=== PATIENT | male | born 1950 | race Caucasian/White ===

== ENCOUNTER 2021-12-04 05:23 | Day surgery (SDC) | payer MEDICARE, BC ==
[2021-11-29 15:00] LABS: BASOPHILS # (AUTO) 0.1 X10'3 (0-0.2); BASOPHILS % (AUTO) 0.9 % (0-1); EOSINOPHILS # (AUTO) 0.1 X10'3 (0-0.9); LYMPHOCYTES # (AUTO) 1.1 X10'3 (1.1-4.8); LYMPHOCYTES % (AUTO) 17.2 % (21-51); MEAN CORPUSCULAR HEMOGLOBIN 29.9 PG (27.0-31.0); MEAN CORPUSCULAR HGB CONC 33.2 g/dL (33.0-36.5); MEAN CORPUSCULAR VOLUME 89.9 FL (78-98); MEAN PLATELET VOLUME 7.2 FL (7.4-10.4); MONOCYTES # (AUTO) 0.5 X10'3 (0-0.9); MONOCYTES % (AUTO) 8.8 % (2-12); NEUTROPHILS # (AUTO) 4.4 X10'3 (1.8-7.7); NEUTROPHILS % (AUTO) 72.1 % (42-75); PRE OP HEMATOCRIT 44.5 % (42.0-52.0); PRE OP HEMOGLOBIN 14.8 g/dL (14.0-17.9); PRE OP PLATELET COUNT 256 X10'3 (140-440); RED BLOOD COUNT 4.95 X10'6 (4.70-6.10); RED CELL DISTRIBUTION WIDTH 13.5 % (11.5-14.5)
[2021-11-29 15:15] LABS: ALBUMIN 3.6 G/DL (3.4-5.0); ALBUMIN/GLOBULIN RATIO 0.9 (1.1-1.5); ALKALINE PHOSPHATASE 73 IU/L (46-116); BLOOD UREA NITROGEN 19 MG/DL (7-18); BUN/CREATININE RATIO 16.5 (5.4-32.0); CALCIUM 9.2 MG/DL (8.5-10.1); CHLORIDE 105 MMOL/L (99-107); CREATININE 1.15 MG/DL (0.60-1.10); PRE OP ALT 67 U/L (30-65); PRE OP ANION GAP 11 (8-16); PRE OP AST 23 U/L (10-37); PRE OP BILIRUB, TOTAL 0.5 MG/DL (0.0-1.0); PRE OP SODIUM 142 MMOL/L (135-145); TOTAL CARBON DIOXIDE 25.6 MMOL/L (24-32); TOTAL PROTEIN 7.6 G/DL (6.4-8.2); eGFR 63 ML/MIN
[2021-11-29 15:20] LABS: PRE OP POTASSIUM 4.1 MMOL/L (3.4-5.1)
[2021-11-29 15:28] LABS: PRE OP GLUCOSE 273 MG/DL (70-104)
[~2021-12-04] VITALS: Ht 177.8 cm; Wt 77.9 kg
[~2021-12-04 05:23] MED LIST: EMPA10TA PO; EZET10TA6 PO; HYDR-3972 PO; NAPR-1058 PO; NYST1000 PO; ROSU10TA2 PO; SEMA1PEN3 SQ; [UNRECOGNIZED DRUG - OTHER] PO; ringers solution, lacted 1,000 ML IV SCH
[2021-12-04] MEDS ORDERED: famotidine 20mg tablet PO ONE (05:30)
[2021-12-04] MEDS ORDERED: ceFAZolin inj. 2,000 MG in dextrose 5%-water 100 ML IV ONE (05:30)
[2021-12-04 06:00] VITALS: BP 128/71
[2021-12-04] MEDS ORDERED: BUPIVAcaine/PF 2.5 mg/ml (0.25%) 30ml vial ONE (06:46)
[2021-12-04] MEDS ORDERED: BUPIVAcaine/PF 2.5mg/ml (0.25%) 10ml vial ONE (06:59)
[2021-12-04] MEDS ORDERED: morphine 2 MG/ML inj. syringe IV PRN (07:15)
[2021-12-04] MEDS ORDERED: hydrALAZINE 20mg/ml inj. IV PRN (07:15)
[2021-12-04] MEDS ORDERED: labetalol 20mg/4ml (5mg/ml) syringe IV PRN (07:15)
[2021-12-04] MEDS ORDERED: morphine 4 MG/ML inj SYRINge IV PRN (07:15)
[2021-12-04] MEDS ORDERED: ondansetron/PF 4mg/2ml inj IV PRN (07:15)
[2021-12-04] MEDS ORDERED: ringers solution, lacted 1,000 ML IV SCH (07:15)
[2021-12-04] MEDS ORDERED: fentaNYL/PF 50MCG/1 ML 2ML syringe IV PRN ×2 (07:15)
[2021-12-04] MEDS ORDERED: LIDOcaine 0.5% (5mg/ml) 50ml vial ONE (07:16)
[2021-12-04] MEDS ORDERED: MIDAZolam 1 MG/ML 5ML VIAL ONE (07:21)
[2021-12-04] MEDS ORDERED: fentaNYL/PF 50MCG/1 ML 2ML syringe ONE (07:21)
[2021-12-04 08:07] VITALS: BP 124/73
--- NOTE | 2021-12-04 08:07 | NUR ---
Received from OR via [facility], accompanied by Anesthesiologist DR. NELSON and report given by Anesthesiologist AND OR NURSE. PATIENT AWAKE ON ROOM AIR, NO S/S OF PAIN, V/S WNL, 20G TO L WRIST, RIGHT WRIST DRESSING CDI. ICE APPLIED AND RIGHT ARM ELEVATED. WILL CONTINUE TO MONITOR. Addendum: 12/04/21 at 0821 by Joyce Khan RN Amended: Links added.
[2021-12-04 08:17] VITALS: BP 124/79
[2021-12-04 08:27] VITALS: BP 117/69
[2021-12-04 08:37] VITALS: BP 115/67
--- NOTE | 2021-12-04 08:47 | NUR ---
PATIENT A&OX4, DENIES PAIN, V/S WNL, 20G TO L WRIST D/C, RIGHT WRIST DRESSING CDI. ICE APPLIED AND ARM ELEVATED. I HAVE REVIEWED D/C INSTRUCTIONS WITH PATIENT and HE HAS verbalized understanding patient d/c home with all belongings and family gave transport home. Addendum: 12/04/21 at 0829 by Joyce Khan RN Amended: Links added.
[2021-12-04 12:07] VITALS: BP 128/71
== END 2021-12-04 08:47 | disposition home or self-care (01) ==
LOC: PAS 05:23
PROVIDERS: ATTEND Orthopaedic Surgery Hand Surgery
DX: G56.01 Carpal tunnel syndrome, right upper limb (principal); E11.9 Type 2 diabetes mellitus without complications; M19.049 Primary osteoarthritis, unspecified hand; Z79.899 Other long term (current) drug therapy; Z98.890 Other specified postprocedural states
CPT/HCPCS: 29848; 36415; 80053; 82948; 85025; 93005; J0690; J2250; J3010; J3490; J7030; J7060; J7120; Z7506; Z7512; A4215; A7000

== ENCOUNTER 2022-04-06 06:25 | Day surgery (SDC) | payer MEDICARE, BC ==
[2022-03-30 13:08] LABS: BASOPHILS % (AUTO) 0.9 % (0-1); EOSINOPHILS # (AUTO) 0.1 X10'3 (0-0.9); EOSINOPHILS % (AUTO) 1.5 % (0-6); LYMPHOCYTES # (AUTO) 1.2 X10'3 (1.1-4.8); LYMPHOCYTES % (AUTO) 23.8 % (21-51); MEAN CORPUSCULAR HEMOGLOBIN 29.7 PG (27.0-31.0); MEAN CORPUSCULAR HGB CONC 32.9 g/dL (33.0-36.5); MEAN CORPUSCULAR VOLUME 90.3 FL (78-98); MEAN PLATELET VOLUME 7.3 FL (7.4-10.4); MONOCYTES # (AUTO) 0.5 X10'3 (0-0.9); MONOCYTES % (AUTO) 10.6 % (2-12); NEUTROPHILS # (AUTO) 3.2 X10'3 (1.8-7.7); NEUTROPHILS % (AUTO) 63.2 % (42-75); PRE OP HEMATOCRIT 44.3 % (42.0-52.0); PRE OP HEMOGLOBIN 14.6 g/dL (14.0-17.9); PRE OP PLATELET COUNT 180 X10'3 (140-440); RED BLOOD COUNT 4.91 X10'6 (4.70-6.10)
[2022-03-30 13:21] LABS: ALBUMIN 3.9 G/DL (3.4-5.0); ALBUMIN/GLOBULIN RATIO 1.2 (1.1-1.5); ALKALINE PHOSPHATASE 57 IU/L (46-116); BLOOD UREA NITROGEN 17 MG/DL (7-18); BUN/CREATININE RATIO 17.3 (5.4-32.0); CALCIUM 8.9 MG/DL (8.5-10.1); CHLORIDE 105 MMOL/L (99-107); CREATININE 0.98 MG/DL (0.60-1.10); PRE OP ALT 51 U/L (30-65); PRE OP ANION GAP 3 (8-16); PRE OP AST 23 U/L (10-37); PRE OP BILIRUB, TOTAL 0.7 MG/DL (0.0-1.0); PRE OP GLUCOSE 179 MG/DL (70-104); PRE OP POTASSIUM 4.7 MMOL/L (3.4-5.1); PRE OP SODIUM 137 MMOL/L (135-145); TOTAL CARBON DIOXIDE 28.8 MMOL/L (24-32); TOTAL PROTEIN 7.2 G/DL (6.4-8.2); eGFR 76 ML/MIN
[~2022-04-06] VITALS: Ht 177.8 cm; Wt 81.0 kg
[~2022-04-06 06:25] MED LIST changes: -NYST1000 PO; -[UNRECOGNIZED DRUG - OTHER] PO; +ceFAZolin inj. 2,000 MG in dextrose 5%-water 100 ML IV ONE; +famotidine 20mg tablet PO ONE
[2022-04-06 06:30] VITALS: BP 130/72
[2022-04-06] MEDS ORDERED: ondansetron/PF 4mg/2ml inj IV PRN (07:05)
[2022-04-06] MEDS ORDERED: morphine 4 MG/ML inj SYRINge IV PRN (07:05)
[2022-04-06] MEDS ORDERED: labetalol 20mg/4ml (5mg/ml) syringe IV PRN (07:05)
[2022-04-06] MEDS ORDERED: morphine 2 MG/ML inj. syringe IV PRN (07:05)
[2022-04-06] MEDS ORDERED: ringers solution, lacted 1,000 ML IV SCH (07:05)
[2022-04-06] MEDS ORDERED: BUPIVAcaine 0.5% inj/PF 30 ML ONE (08:07)
[2022-04-06] MEDS ORDERED: fentaNYL/PF 50MCG/1 ML 2ML syringe ONE (08:35)
[2022-04-06] MEDS ORDERED: midazolam 1 mg/ML 2ml injection ONE ×2 (08:35)
[2022-04-06] MEDS ORDERED: BUPIVAcaine 0.5% inj/PF 30 ml vial IJ ONE (08:50)
[2022-04-06] MEDS ORDERED: LIDOcaine 0.5% (5mg/ml) 50ml vial ONE (08:51)
[2022-04-06 08:59] VITALS: BP 122/74
--- NOTE | 2022-04-06 08:59 | NUR ---
Received from OR via , accompanied by Anesthesiologist LUDIVINA AND OR NURSE and report given by Anesthesiolgist. PT IS AWAKE AND ALERT AND DENIES PAIN OR DISCOMFORT. ON ROOM AIR. VSS. GAUZE AND RICCO WRAP TO LEFT SURGICAL WRIST; CDI Addendum: 04/06/22 at 0912 by Salome Pandey RN Amended: Links added.
[2022-04-06 09:10] VITALS: BP 129/71
[2022-04-06 09:20] VITALS: BP 126/77
[2022-04-06 09:30] VITALS: BP 132/74
--- NOTE | 2022-04-06 09:39 | NUR ---
I HAVE REVIEWED D/C INSTRUCTIONS WITH PATIENT AND THEY HAVE VERBALIZED UNDERSTANDING OF INSTRUCTIONS. PATIENT D/C HOME WITH ALL BELONGINGS AND FAMILY GAVE TRANSPORT Addendum: 04/06/22 at 8350 by Salome Pandey RN Amended: Links added.
== END 2022-04-06 09:39 | disposition home or self-care (01) ==
LOC: PAS 06:25
PROVIDERS: ATTEND Orthopaedic Surgery Hand Surgery
DX: G56.02 Carpal tunnel syndrome, left upper limb (principal); M19.041 Primary osteoarthritis, right hand; M19.042 Primary osteoarthritis, left hand; E11.9 Type 2 diabetes mellitus without complications; Z86.718 Personal history of other venous thrombosis and embolism; Z79.899 Other long term (current) drug therapy; Z98.890 Other specified postprocedural states; Z72.89 Other problems related to lifestyle
CPT/HCPCS: 29848; 36415; 80053; 82948; 85025; J0690; J2250; J3010; J3490; J7030; J7060; J7120; S0020; Z7506; Z7512; A4215; A7000